=== PATIENT | female | born 1990 | race Caucasian/White ===

== ENCOUNTER 2019-03-09 23:50 | Inpatient (IN) | payer OTHER ==
[~2019-03-09] VITALS: Ht 167.6 cm; Wt 92.4 kg
[2019-03-10] MEDS ORDERED: VANCOMYCIN IV PER PHARMACY XX SCH (00:01)
[2019-03-10] MEDS ORDERED: SODIUM CHLORIDE 0.9% 1L BAG IV* STA (01:07)
[2019-03-10] MEDS ORDERED: morphine 4 MG/ML VIAL IV STA (01:07)
[2019-03-10] MEDS ORDERED: CEFTRIAXONE 1 GM/50 ML (PMX) 50 ML IVPB STA (01:07)
[2019-03-10] MEDS ORDERED: ONDANSETRON 4 MG INJ IV STA (01:07)
[2019-03-10] MEDS ORDERED: ACETAMINOPHEN 325 MG TAB PO STA (01:07)
--- NOTE | 2019-03-10 02:25 | ERD ---
ER Documentation Chief Complaint Chief Complaint L LOWER BACK PAIN, CURRENT TX FOR KIDNEY STONES. FEVER X'S 3 DAYS HPI This is a 29-year-old female who presents for evaluation of lower back pain, she has been having a fever for the last 3 days, she has a history of recurrent kidney stones, and she has had stent placement in the past. She is noted to be febrile, after being roomed in the ED to, thus a code sepsis was called. She states that her symptoms feel similar to prior episodes of kidney stones, she denies any cough, no shortness of breath ROS All systems reviewed and are negative except as per history of present illness. Allergies Allergies: Coded Allergies: No Known Allergy (Unverified , 03/10/19) Physical Exam Vitals Vital Signs Date Temp Pulse Resp B/P (MAP) Pulse Ox O2 O2 Flow FiO2 Time Delivery Rate 03/10/19 101.0 02:33 03/09/19 100.6 103 18 143/75 99 23:55 (97) Physical Exam Const: Well-developed, well-nourished nontoxic Head: Atraumatic Eyes: Normal Conjunctiva ENT: Normal External Ears, Nose and Mouth. Neck: Full range of motion. No meningismus. Resp: Clear to auscultation bilaterally Cardio: Regular rate and rhythm, no murmurs Abd: Soft, non tender, non distended. Normal bowel sounds Skin: No petechiae or rashes Back: No midline or flank tenderness Ext: No cyanosis, or edema Neur: Awake and alert Psych: Normal Mood and Affect Result Diagram: 03/10/19 0128 03/10/19 0128 Results 24 hrs Laboratory Tests Test 03/10/19 01:13 03/10/19 01:28 03/10/19 01:30 03/10/19 02:20 Hepatitis B NEGATIVE Surface Antigen Hepatitis B Core NEGATIVE Total Antibody Hepatitis C NEGATIVE Antibody White Blood Count 6.3 10^3/ul Red Blood Count 3.96 10^6/ul Hemoglobin 10.9 g/dl Hematocrit 34.1 % Mean Corpuscular 86.1 fl Volume Mean Corpuscular 27.5 pg Hemoglobin Mean Corpuscular 32.0 g/dl Hemoglobin Concen t Red Cell 13.4 % Distribution Width Platelet Count 174 10^3/UL Mean Platelet 10.8 fl Volume Immature 0.200 % Granulocytes % Neutrophils % 61.6 % Lymphocytes % 27.1 % Monocytes % 9.8 % Eosinophils % 1.0 % Basophils % 0.3 % Nucleated Red 0.0 /100WBC Blood Cells % Immature 0.010 10^3/ul Granulocytes # Neutrophils # 3.9 10^3/ul Lymphocytes # 1.7 10^3/ul Monocytes # 0.6 10^3/ul Eosinophils # 0.1 10^3/ul Basophils # 0.0 10^3/ul Nucleated Red 0.0 10^3/ul Blood Cells # Prothrombin Time 12.7 Sec Prothrombin Time 1.0 Ratio INR International 0.94 Normalized Ratio Activated 29.8 Sec Partial Thrombopl ast Time Sodium Level 140 mmol/L Potassium Level 4.2 mmol/L Chloride Level 108 mmol/L Carbon Dioxide 24 mmol/L Level Anion Gap 8 Blood Urea 15 mg/dl Nitrogen Creatinine 0.92 mg/dl Est Glomerular > 60 mL/min Filtrat Rate mL/min Glucose Level 104 mg/dl POC Venous 1.1 mmol/L Lactate Calcium Level 8.6 mg/dl Total Bilirubin 0.3 mg/dl Direct Bilirubin 0.00 mg/dl Indirect 0.3 mg/dl Bilirubin Aspartate Amino 74 IU/L Transf (AST/SGOT) Alanine 96 IU/L Aminotransferase (ALT/SGPT) Alkaline 105 IU/L Phosphatase Troponin I < 0.012 ng/ml Total Protein 7.4 g/dl Albumin 3.9 g/dl Globulin 3.50 g/dl Albumin/Globulin 1.11 Ratio Serum HCG, NEGATIVE Qualitative Lactic Acid Level 0.9 mmol/L Urine Color YELLOW Urine Clarity SLIGHTLY CLOUDY Urine pH 6.0 Urine Specific 1.025 [place] Urine Ketones NEGATIVE mg/dL Urine Nitrite NEGATIVE mg/dL Urine Bilirubin NEGATIVE mg/dL Urine NEGATIVE mg/dL Urobilinogen Urine Leukocyte 2+ Arlyn/ul Esterase Urine Microscopic 5 /HPF RBC Urine Microscopic 37 /HPF WBC Urine Squamous MODERATE /HPF Epithelial Cells Urine Mucus FEW /HPF Urine Hemoglobin NEGATIVE mg/dL Urine Glucose NEGATIVE mg/dL Urine Total NEGATIVE mg/dl Protein Test 03/10/19 02:34 POC Beta HCG, NEGATIVE Qualitative Current Medications Medications Dose Sig/Angelo Start Time Status Last (Trade) Ordered Route PRN Stop Time Admin Dose Reason Admin Sodium 2,710 ml BOLUS OVER 2 03/10/19 DC 03/10/19 Chloride HOURS STAT 01:07 02:34 (NS) IV* 03/10/19 01:10 650 mg ONCE STAT 03/10/19 DC 03/10/19 Acetaminophen PO 01:07 02:33 (Tylenol 03/10/19 01:10 Tab) Morphine 4 mg ONCE STAT 03/10/19 DC 03/10/19 Sulfate IV 01:07 02:34 (morphine) 03/10/19 01:10 Ondansetron 4 mg ONCE STAT 03/10/19 DC 03/10/19 HCl (Zofran IV 01:07 02:33 Inj) 03/10/19 01:10 Ceftriaxone 50 ml @ ONCE STAT 03/10/19 DC 03/10/19 Sodium 100 mls/hr IVPB 01:07 02:33 03/10/19 01:36 EKG: Rate/Rhythm: Normal Sinus Rhythm QRS, ST, T-waves: No changes consistent w/ acute ischemia Impression: No evidence of ischemia or arrhythmia Procedures/MDM 29-year-old female presents for relation of flank pain. She was tachycardic with a noted fever, thus a code sepsis was called, persistent pyelonephritis, her CT abdomen pelvis did not show any evidence of any renal stones, she had pyuria, consistent with likely pyelonephritis. She had no evidence of severe sepsis or septic shock. She was given a 30 cc/kg bolus of IV fluids, blood cultures and lactate were drawn prior to antibiotics, she was given ceftriaxone. Accepting Care Team: Current data and ongoing care discussed. Primary: Amde Consulting: None Outstanding Data: none Departure Diagnosis: Primary Impression: Flank pain Additional Impressions: Sepsis Sepsis type: sepsis due to unspecified organism Qualified Codes: A41.9 - Sepsis, unspecified organism Pyelonephritis Condition: SOLO Melendez MD March 10, 2019 02:25
[2019-03-10] MEDS: SOD CHLORIDE 0.9% 1,000 ML IV SCH ×3 (03:51→20:25)
[2019-03-10] MEDS ORDERED: NACL 0.9% 3 ML SYG IV SCH (04:00)
[2019-03-10] MEDS ORDERED: ONDANSETRON 4 MG INJ IV PRN (04:00)
[2019-03-10 04:29] VITALS: BP 117/68; PULSE 76; RESP 18
[2019-03-10 04:33] VITALS: Ht 167.6 cm; Wt 92.4 kg
--- NOTE | 2019-03-10 06:57 | HP ---
Date/Time of Note Date/Time of Note DATE: 03/10/19 TIME: 06:55 Assessment/Plan VTE Prophylaxis SCD applied (from Nsg): Yes Pharmacological prophylaxis: heparin Lines/Catheters IV Catheter Type (from Nrsg): Peripheral IV Urinary Cath still in place: No Assessment/Plan Assessment/Plan 29-year-old female with left ureterolithiasis status post stent presented with left flank pain and found to be septic secondary to UTI with probable left-sided pyelonephritis PLAN -IV antibiotic -IV fluid -Follow-up culture results -Pain management -Urology consult as needed Result Diagram: 03/10/19 0128 03/10/19 0128 Results 24hrs Laboratory Tests Test 03/10/19 01:28 03/10/19 01:30 03/10/19 02:20 03/10/19 02:34 White Blood Count 6.3 Red Blood Count 3.96 L Hemoglobin 10.9 L Hematocrit 34.1 L Mean Corpuscular 86.1 Volume Mean Corpuscular 27.5 L Hemoglobin Mean Corpuscular 32.0 Hemoglobin Concen t Red Cell 13.4 Distribution Width Platelet Count 174 Mean Platelet 10.8 H Volume Immature 0.200 Granulocytes % Neutrophils % 61.6 Lymphocytes % 27.1 Monocytes % 9.8 Eosinophils % 1.0 Basophils % 0.3 Nucleated Red 0.0 Blood Cells % Immature 0.010 Granulocytes # Neutrophils # 3.9 Lymphocytes # 1.7 Monocytes # 0.6 Eosinophils # 0.1 Basophils # 0.0 Nucleated Red 0.0 Blood Cells # Prothrombin Time 12.7 Prothrombin Time 1.0 Ratio INR International 0.94 Normalized Ratio Activated 29.8 Partial Thrombopl ast Time Sodium Level 140 Potassium Level 4.2 Chloride Level 108 Carbon Dioxide 24 Level Anion Gap 8 Blood Urea 15 Nitrogen Creatinine 0.92 Est Glomerular > 60 Filtrat Rate mL/min Glucose Level 104 POC Venous 1.1 Lactate Calcium Level 8.6 Total Bilirubin 0.3 Direct Bilirubin 0.00 Indirect 0.3 Bilirubin Aspartate Amino 74 H Transf (AST/SGOT) Alanine 96 H Aminotransferase (ALT/SGPT) Alkaline 105 Phosphatase Troponin I < 0.012 Total Protein 7.4 Albumin 3.9 Globulin 3.50 H Albumin/Globulin 1.11 Ratio Serum HCG, NEGATIVE Qualitative Lactic Acid Level 0.9 Urine Color YELLOW Urine Clarity SLIGHTLY CLOUDY A Urine pH 6.0 Urine Specific 1.025 [place] Urine Ketones NEGATIVE Urine Nitrite NEGATIVE Urine Bilirubin NEGATIVE Urine NEGATIVE Urobilinogen Urine Leukocyte 2+ H Esterase Urine Microscopic 5 RBC Urine Microscopic 37 H WBC Urine Squamous MODERATE Epithelial Cells Urine Mucus FEW A Urine Hemoglobin NEGATIVE Urine Glucose NEGATIVE Urine Total NEGATIVE Protein POC Beta HCG, NEGATIVE Qualitative Test 03/10/19 04:03 POC Venous 0.8 Lactate HPI/ROS Admit Date/Time Admit Date/Time March 10, 2019 at 02:45 Hx of Present Illness This is a 37-year-old female with history of left ureterolithiasis status post stent placement who presents the ER complaining of left flank pain and fever. When presented to ER, she was febrile. UA consistent with UTI. CT abdomen/pelvis shows the followin. Two 0.4 cm hypodensities are noted within the liver that are too small to accurately characterize. This may not warrant additional follow-up or evaluation depending on patient risk factors. If the patient has risk factors correlation with prior imaging or follow-up hepatic MRI is suggested for further characterization. 2. Mild splenomegaly. PMH/Family/Social Past Medical History Past Surgical Hx: other (see hpi) Family History Significant Family History: no pertinent family hx Social History Alcohol Use: none Smoking Status: Never smoker Drug Use: none Exam Exam Constitutional: other (No acute distress) Head: normocephalic, atraumatic Eyes: EOMI, PERRL Respiratory: other (no wheezing or Rhonchi) Cardiovascular: normal pulse Gastrointestinal: soft, non-tender Extremities: normal pulses Medications Current Medications Sodium Chloride 1,000 ml @ 100 mls/hr Q10H IV Last administered on 03/10/19at 03:51; Admin Dose 100 MLS/HR; Start 03/10/19 at 03:39 IV Flush (NS 3 ml) 3 ml PER PROTOCOL IV ; Start 03/10/19 at 04:00 Ondansetron HCl (Zofran Inj) 4 mg Q6H PRN IV NAUSEA/VOMITING; Start 03/10/19 at 04:00 Acetaminophen (Tylenol Tab) 650 mg Q6H PRN PO .PAIN 1-3 OR TEMP; Start 03/10/19 at 04:00 Coded Allergies: No Known Allergy (Unverified , 03/10/19) Social History Smoking Status: Never smoker Exam/Review of Systems Vital Signs Vitals Vital Signs Date Temp Pulse Resp B/P (MAP) Pulse Ox O2 O2 Flow FiO2 Time Delivery Rate 03/10/19 98.2 76 18 117/68 98 Room Air 04:29 (84) Intake and Output 03/09/19 03/09/19 03/10/19 1515:00 23:00 07:00 IntakeIntake Total 150 ml BalanceBalance 150 ml KHUSHBU RUIZ MD March 10, 2019 06:57
[2019-03-10 07:28] VITALS: BP 111/70; PULSE 75; RESP 14
[2019-03-10] MEDS: morphine 2 MG INJ IV PRN ×2 (08:54→16:57)
--- NOTE | 2019-03-10 11:49 | PN ---
Date/Time of Note Date/Time of Note DATE: 03/10/19 TIME: 11:49 Objective Vitals Vital Signs Date Temp Pulse Resp B/P (MAP) Pulse Ox O2 O2 Flow FiO2 Time Delivery Rate 03/10/19 98.4 75 14 111/70 100 Room Air 07:28 (84) Intake and Output 03/09/19 03/09/19 03/10/19 1414:59 22:59 06:59 IntakeIntake Total 150 ml BalanceBalance 150 ml Results Result Diagram: 03/10/19 0128 03/10/19 0128 Medications Medications Current Medications Sodium Chloride 1,000 ml @ 100 mls/hr Q10H IV Last administered on 03/10/19at 03:51; Admin Dose 100 MLS/HR; Start 03/10/19 at 03:39 IV Flush (NS 3 ml) 3 ml PER PROTOCOL IV ; Start 03/10/19 at 04:00 Ondansetron HCl (Zofran Inj) 4 mg Q6H PRN IV NAUSEA/VOMITING; Start 03/10/19 at 04:00 Acetaminophen (Tylenol Tab) 650 mg Q6H PRN PO .PAIN 1-3 OR TEMP; Start 03/10/19 at 04:00 Acetaminophen/ Hydrocodone Bitart ([place] (5/325)) 1 tab Q4H PRN PO MODERATE PAIN LEVEL 4-6; Start 03/10/19 at 08:30 Morphine Sulfate (morphine) 2 mg Q4H PRN IV SEVERE PAIN LEVEL 7-10 Last administered on 03/10/19at 08:54; Admin Dose 2 MG; Start 03/10/19 at 08:30 Ceftriaxone Sodium 50 ml @ 100 mls/hr Q24H IVPB ; Start 03/10/19 at 21:00 VTE Prophylaxis Risk score (from Nsg)>0 risk: 1 SCD applied (from Nsg): Yes Lines/Catheters IV Catheter Type: Ramirez in Place: No Assessment/Plan Hospital Course Short progress note as patient was seen earlier today with H&P, patient does have a history of left kidney stone, 8 mm diagnosed approximately 1 month ago by her urologist who does not have privileges here at [facility], will obtain x-ray and ultrasound to ensure no continued stone, continue IV antibiotic for at least pyelonephritis, recommend patient wait for urine culture before discharge. Patient does have some elevated liver enzymes and possible abnormali ty on CT, follow-up with ultrasound of the liver and possible MRI if abnormalities are found. Hepatitis negative SOLO BRAVO March 10, 2019 11:49
[2019-03-10 12:05] VITALS: PULSE 84
[2019-03-10] MEDS: ACETAMINOPHEN 325 MG TAB PO PRN ×2 (12:12→19:35)
[2019-03-10] MEDS: HYDROCODONE/APAP (5/325) TAB PO PRN ×2 (12:12→18:22)
[2019-03-10 13:00] VITALS: PULSE 84
[2019-03-10 15:04] VITALS: BP 121/68; PULSE 79; RESP 16
[2019-03-10 18:15] VITALS: PULSE 82
[2019-03-10] MEDS: CEFTRIAXONE 1 GM/50 ML (PMX) 50 ML IVPB SCH (20:23)
[2019-03-11 00:41] VITALS: BP 106/70; PULSE 88; RESP 19
[2019-03-11] MEDS ORDERED: VANCOMYCIN HCL 2 GM in SOD CHLORIDE 0.9% 500 ML IVPB SCH (02:00)
[2019-03-11 02:20] VITALS: BP 108/71; PULSE 85; RESP 16
[2019-03-11] MEDS: morphine 2 MG INJ IV PRN (02:21)
[2019-03-11] MEDS: ACETAMINOPHEN 325 MG TAB PO PRN ×2 (02:23→20:22)
[2019-03-11] MEDS: SOD CHLORIDE 0.9% 1,000 ML IV SCH (05:51)
[2019-03-11 07:31] VITALS: BP 115/62; PULSE 79; RESP 18
[2019-03-11] MEDS: HYDROCODONE/APAP (5/325) TAB PO PRN (10:07)
[2019-03-11] MEDS ORDERED: ALBUTEROL 0.083% (NEB) 2.5 MG/3 ML AMP HHN PRN (12:00)
[2019-03-11] MEDS ORDERED: DOCUSATE SODIUM 100 MG CAP PO PRN (12:00)
[2019-03-11] MEDS ORDERED: HYDROmorphONE 0.5 MG/0.5 ML SYG IV PRN (12:30)
--- NOTE | 2019-03-11 13:13 | CONS ---
DATE OF ADMISSION: 03/10/2019 DATE OF CONSULTATION: 03/11/2019 TYPE OF CONSULTATION: Infectious disease. REASON FOR CONSULTATION: Antibiotic management. HISTORY OF PRESENT ILLNESS: Ale Rodgers is a 29-year-old female who came in with left lower back pain with history of kidney stones and fever for the last 3 days. She comes in for evaluation of low back pain. She has had fever for 3 days, history of recurrent kidney stones and has had a stephenie nt placement in the past. She is febrile to 101. Her symptoms feel similar to that when she had kid susanne stones in the past. PAST MEDICAL HISTORY: Otherwise noncontributory. SOCIAL HISTORY: She does not smoke, drink or abuse drugs. ALLERGIES: None to penicillin, sulfa or foods. MEDICATIONS: Per chart. REVIEW OF SYSTEMS: Noncontributory. PHYSICAL EXAMINATION: GENERAL: She is a well-developed, well-nourished female, awake, responsive, in no acute distress. VITAL SIGNS: Stable. T-max 101. SKIN: Without generalized rash. HEENT: Within normal limits. NECK: Supple. LYMPH NODES: None palpable. CHEST: Decreased breath sounds at the bases. HEART: Without murmur or gallop. ABDOMEN: Soft, nontender, without organosplenomegaly or masses. EXTREMITIES: Without cyanosis, clubbing, or edema. RECTAL AND GENITAL: Deferred. NEUROLOGIC: No focal neurological abnormalities. LABORATORY DATA: On the , white count was 6.3, H and H of 10.9 and 34.1, platelet count 174,000. BUN and creatinine 15/0.92. She had 62% neutrophils. Her blood cultures are positive for gram-pos itive cocci. Urinalysis showed 2+ leukocyte esterase, 37 white cells per high powered field. ANCILLARY LABORATORY DATA: CT scan of the abdomen and pelvis showed two 0.4 cm hypodensities within the liver. No other stones, mild splenomegaly. IMPRESSION AND PLAN: The patient was started on vancomycin and azithromycin, and she is also on ceft riaxone. She is being treated for right upper lobe pneumonia with consolidation, in addition to the fact that she probably has urinary tract infection. She has gram-positive cocci in her blood and so she is on vancomycin as well as cefotaxime or ceftriaxone. I will dictate my findings to the hospita lists. Dictated By: MARIELA MEDEIROS MD, JD/KEEGAN RODRIGUEZ: 03/11/2019 12:15:47 Conf#: [id number] [facility]#: [id number] CC: KHUSHBU RUIZ MD;*EndCC*
[2019-03-11] MEDS: VANCOMYCIN 1 GM 250 ML IVPB SCH ×2 (13:22→20:15)
[2019-03-11] MEDS: POLYETHYLENE GLYCOL 17 GM PACKET PO SCH (13:22)
[2019-03-11] MEDS: KETOROLAC 15 MG INJ IV PRN (13:23)
[2019-03-11 14:05] VITALS: BP 120/68; PULSE 80; RESP 18
[2019-03-11] MEDS: ALBUTEROL 0.083% (NEB) 2.5 MG/3 ML AMP HHN SCH ×2 (14:45→20:39)
--- NOTE | 2019-03-11 15:03 | PN ---
Date/Time of Note Date/Time of Note DATE: 03/11/19 TIME: 14:55 Assessment/Plan VTE Prophylaxis Risk score (from [facility])>0 risk: 1 SCD applied (from [facility]): Yes Pharmacological prophylaxis: NA/contraindicated Pharm contraindication: low risk/ambulating Lines/Catheters IV Catheter Type (from [facility]): Peripheral IV Urinary Cath still in place: No Assessment/Plan Assessment/Plan 1. Sepsis secondary to PNA, UTI, and bacteremia - Still spiking fevers and will continue supportive care - ID consultation placed for antibiotics recommendations - blood culture results noted - WBC normal 2. Right upper lobe PNA - will continue on current antibiotics - Nebs q6H and PRN - O2 as needed 3. UTI - Urine culture results pending - denies any dysuria 4. Bacteremia - blood cx show gram + cocci - ECHO ordered to rule out vegetation - will repeat cx tmrw 5. h/o nephrolithiasis - imaging studies negative for nephrolithiasis and renal abnormalities 6. Anemia - will check iron studies 7. Disposition - Will continue current antibiotic treatment and repeat blood cultures tomorrow. Once patient remains afebrile for at least 24 hours and cx sensitivities return, will d/c Result Diagram: 03/11/19 0501 03/11/19 0501 Results 24hrs Laboratory Tests Test 03/11/19 05:01 White Blood Count 6.7 Red Blood Count 3.76 L Hemoglobin 10.3 L Hematocrit 31.6 L Mean Corpuscular Volume 84.0 Mean Corpuscular Hemoglobin 27.4 L Mean Corpuscular Hemoglobin Concent 32.6 Red Cell Distribution Width 13.6 Platelet Count 176 Mean Platelet Volume 11.1 H Immature Granulocytes % 0.300 Neutrophils % 69.5 Lymphocytes % 19.5 Monocytes % 9.4 Eosinophils % 1.2 Basophils % 0.1 Nucleated Red Blood Cells % 0.0 Immature Granulocytes # 0.020 Neutrophils # 4.6 Lymphocytes # 1.3 Monocytes # 0.6 Eosinophils # 0.1 Basophils # 0.0 Nucleated Red Blood Cells # 0.0 Sodium Level 140 Potassium Level 3.8 Chloride Level 107 Carbon Dioxide Level 26 Anion Gap 7 Blood Urea Nitrogen 9 Creatinine 0.75 Est Glomerular Filtrat Rate mL/min > 60 Glucose Level 95 Calcium Level 8.4 Phosphorus Level 3.5 Magnesium Level 1.7 Total Bilirubin 0.2 Direct Bilirubin 0.00 Indirect Bilirubin 0.2 Aspartate Amino Transf (AST/SGOT) 58 H Alanine Aminotransferase (ALT/SGPT) 84 H Alkaline Phosphatase 100 Total Protein 6.1 # Albumin 3.2 L Globulin 2.90 Albumin/Globulin Ratio 1.10 Subjective 24 Hr Interval Summary Free Text/Dictation Patient still with diaphoresis and complaining of headache. Denies any dysuria but is complaining of cough with chest discomfort. Exam/Review of Systems Exam Vitals Vital Signs Date Temp Pulse Resp B/P (MAP) Pulse Ox O2 O2 Flow FiO2 Time Delivery Rate 03/11/19 77 18 96 21 14:45 03/11/19 98.0 120/68 14:05 (85) 03/11/19 Room Air 02:20 Intake and Output 03/10/19 03/10/19 03/11/19 1515:00 23:00 07:00 IntakeIntake Total 850 ml 1530 ml 1500 ml BalanceBalance 850 ml 1530 ml 1500 ml Exam General: Patient is laying in bed and answers questions appropriately. no acute distress Mentation: Patient is alert and oriented 4, Eyes: EOMI, pupils reactive to light Neck: Supple, nontender, midline Respiratory: Clear to auscultation bilaterally. diminished, no wheezing or rhonchi Cardiovascular: regular rate and rhythm, no obvious murmurs Gastrointestinal: soft, nontender to palpation, nondistended, bowel sounds heard. Ext: moving all extremities. no edema Skin: No new skin lesions Results Results 24hrs Laboratory Tests Test 03/11/19 05:01 White Blood Count 6.7 Red Blood Count 3.76 L Hemoglobin 10.3 L Hematocrit 31.6 L Mean Corpuscular Volume 84.0 Mean Corpuscular Hemoglobin 27.4 L Mean Corpuscular Hemoglobin Concent 32.6 Red Cell Distribution Width 13.6 Platelet Count 176 Mean Platelet Volume 11.1 H Immature Granulocytes % 0.300 Neutrophils % 69.5 Lymphocytes % 19.5 Monocytes % 9.4 Eosinophils % 1.2 Basophils % 0.1 Nucleated Red Blood Cells % 0.0 Immature Granulocytes # 0.020 Neutrophils # 4.6 Lymphocytes # 1.3 Monocytes # 0.6 Eosinophils # 0.1 Basophils # 0.0 Nucleated Red Blood Cells # 0.0 Sodium Level 140 Potassium Level 3.8 Chloride Level 107 Carbon Dioxide Level 26 Anion Gap 7 Blood Urea Nitrogen 9 Creatinine 0.75 Est Glomerular Filtrat Rate mL/min > 60 Glucose Level 95 Calcium Level 8.4 Phosphorus Level 3.5 Magnesium Level 1.7 Total Bilirubin 0.2 Direct Bilirubin 0.00 Indirect Bilirubin 0.2 Aspartate Amino Transf (AST/SGOT) 58 H Alanine Aminotransferase (ALT/SGPT) 84 H Alkaline Phosphatase 100 Total Protein 6.1 # Albumin 3.2 L Globulin 2.90 Albumin/Globulin Ratio 1.10 Medications Medication Current Medications IV Flush (NS 3 ml) 3 ml PER PROTOCOL IV ; Start 03/10/19 at 04:00 Ondansetron HCl (Zofran Inj) 4 mg Q6H PRN IV NAUSEA/VOMITING; Start 03/10/19 at 04:00 Acetaminophen (Tylenol Tab) 650 mg Q6H PRN PO .PAIN 1-3 OR TEMP Last administered on 03/11/19at 02:23; Admin Dose 650 MG; Start 03/10/19 at 04:00 Acetaminophen/ Hydrocodone Bitart ([place] (5/325)) 1 tab Q4H PRN PO MODERATE PAIN LEVEL 4-6 Last administered on 03/11/19at 10:07; Admin Dose 1 TAB; Start 03/10/19 at 08:30 Ceftriaxone Sodium 50 ml @ 100 mls/hr Q24H IVPB Last administered on 03/10/19at 20:23; Admin Dose 100 MLS/HR; Start 03/10/19 at 21:00 Vancomycin HCl (Vanco Iv Per Pharmacy) VANCOMYCIN PER PHARMACY PER PROTOCOL XX ; Start 03/10/19 at 00:01 Vancomycin HCl 250 ml @ 125 mls/hr Q8H IVPB Last administered on 03/11/19at 13:22; Admin Dose 125 MLS/HR; Start 03/11/19 at 12:00 Miscellaneous Information (*Rx Drug Level Order Reminder*) VANCO TROUGH ON 02/27... 0300 ONCE XX ; Start 03/12/19 at 03:00; Stop 03/12/19 at 03:01 Albuterol (Proventil 0.083% (Neb)) 2.5 mg Q2H RESP THERAPY PRN HHN SHORTNESS OF BREATH; Start 03/11/19 at 12:00 Albuterol (Proventil 0.083% (Neb)) 2.5 mg Q6HWA RESP THERAPY HHN Last administered on 03/11/19at 14:45; Admin Dose 2.5 MG; Start 03/11/19 at 14:00 Azithromycin 250 ml @ 250 mls/hr Q24H IVPB ; Start 03/11/19 at 12:00 Ketorolac Tromethamine (Toradol) 15 mg Q6H PRN IV headache, pain 1-3 Last administered on 03/11/19at 13:23; Admin Dose 15 MG; Start 03/11/19 at 12:00; Stop 03/14/19 at 11:59 Polyethylene Glycol (Miralax) 17 gm DAILY PO Last administered on 03/11/19at 13:22; Admin Dose 17 GM; Start 03/11/19 at 12:00 Docusate Sodium (Colace) 100 mg BID PRN PO CONSTIPATION; Start 03/11/19 at 12:00 Hydromorphone HCl (Dilaudid) 0.5 mg Q4H PRN IV SEVERE PAIN LEVEL 7-10; Start 03/11/19 at 12:30 NAEEM HORNE MD March 11, 2019 15:03
[2019-03-11] MEDS: AZITHROMYCIN 500MG/NS (PMX) 250 ML IVPB SCH (16:15)
--- NOTE | 2019-03-11 16:57 | RADRPT ---
Echocardiogram Report Patient Name: LAUREN SUNGPatient ID: [id number] : 1990 (29y 1m)Study Date: 03/11/2019 2:00:58 PM Gender: FAccession #: [id number] Tech: [facility] Location: [address] Ref.Physician: NAEEM HORNE Height(Cm): BSA: Weight(Kg): Quality: AdequateAccount #: Procedures: Echocardiographic Report: Transthoracic echocardiogram with complete 2D, M-Mode, and doppler examination. Indications: Bacteremia, r/o vegetation. Measurements: 2D/M Mode Doppler Measurement Value Normal Range Measurement Value Normal Range LVIDd 2D 5.0 [ 3.8 - 5.2 ] cm AV Peak Campbell 1.6 [ 100.0 - 170.0 ] cm/sec LVIDs 2D 3.1 [ 2.2 - 3.5 ] cm AV Peak PG 10.0 [ 2.0 - 9.0 ] mmHg LVPWd 2D 1.0 [ 0.6 - 0.9 ] cm LVOT Peak [place] 1.0 [ 70.0 - 110.0 ] cm/sec IVSd 2D 1.0 [ 0.6 - 0.9 ] cm LVOT Peak PG 4.0 [ 2.0 - 6.0 ] mmHg AoR Diam 2D 3.0 [ 2.3 - 3.1 ] cm MV E Peak Campbell 1.0 [ 60.0 - 130.0 ] cm/sec EDV 2D 117.0 [ 46.0 - 106.0 ] ml MV A Peak [place] 1.0 [ 100.0 - 120.0 ] cm/sec ESV 2D 38.2 [ 14.0 - 42.0 ] ml MV E/A 1.1 [ 0.8 - 1.5 ] ratio EF 2D 67.4 [ 54.0 - 74.0 ] percent MV Decel Time 243 [ 104 - 258 ] msec LA Dimen 2D 3.5 [ 2.7 - 3.8 ] cm Lat E` Campbell 0.2 [ 10.0 - 15.0 ] cm/sec Lateral E/E` 6.0 [ 1.0 - 2.0 ] ratio MV E/A 1.1 [ 0.8 - 1.5 ] ratio TR Peak Campbell 3.1 [ 100.0 - 280.0 ] cm/sec TR Peak PG 38.0 mmHg RVSP 48.0 [ 10.0 - 36.0 ] mmHg Findings: Left Ventricle: Normal left ventricular systolic function. Normal left ventricular cavity size. Normal left ventricular wall thickness. Ejection fraction is visually estimated at 55 %. Tissue Doppler/Mitral Doppler indices are within normal limits. Right Ventricle: Normal right ventricular size. Normal right ventricular systolic function. Left Atrium: The left atrium is normal in size. Right Atrium: The right atrium is normal in size. Mitral Valve: Mild mitral leaflet calcification. Mild mitral annular calcification. Trace mitral regurgitation. Aortic Valve: No hemodynamically significant aortic stenosis by doppler. Aortic cusps appear mildly calcified. Trileaflet aortic valve. Tricuspid Valve: Normal appearance of the tricuspid valve. Estimated peak PA systolic pressure 48 mmHg. There is mild tricuspid regurgitation. Pericardium: Normal pericardium with no significant pericardial effusion. Aorta: Normal aortic root. IVC: Normal size and normal respiratory collapse consistent with normal right atrial pressure. Conclusions: Normal left ventricular systolic function. Normal left ventricular cavity size. Normal left ventricular wall thickness. Ejection fraction is visually estimated at 55 %. Tissue Doppler/Mitral Doppler indices are within normal limits. Mild mitral leaflet calcification. Mild mitral annular calcification. Trace mitral regurgitation. No hemodynamically significant aortic stenosis by doppler. Aortic cusps appear mildly calcified. Trileaflet aortic valve. Normal appearance of the tricuspid valve. Estimated peak PA systolic pressure 48 mmHg. There is mild tricuspid regurgitation. Electronically Signed By: Drew Walsh 2019-03-11 16:57:31 PDT
[2019-03-11 20:06] VITALS: BP 120/77; PULSE 99; RESP 18
[2019-03-11] MEDS: CEFTRIAXONE 1 GM/50 ML (PMX) 50 ML IVPB SCH (22:41)
[2019-03-12 01:58] VITALS: BP 115/70; PULSE 68; RESP 18
[2019-03-12] MEDS: VANCOMYCIN 1 GM 250 ML IVPB SCH (04:07)
[2019-03-12 08:00] VITALS: BP 126/78; PULSE 82; RESP 18
[2019-03-12] MEDS: ALBUTEROL 0.083% (NEB) 2.5 MG/3 ML AMP HHN SCH ×3 (08:44→21:41)
[2019-03-12] MEDS: POLYETHYLENE GLYCOL 17 GM PACKET PO SCH (09:00)
--- NOTE | 2019-03-12 10:57 | PN ---
Date/Time of Note Date/Time of Note DATE: 03/12/19 TIME: 10:57 Assessment/Plan VTE Prophylaxis Risk score (from Ns)>0 risk: 1 SCD applied (from Ns): Yes Pharmacological prophylaxis: NA/contraindicated Pharm contraindication: low risk/ambulating Lines/Catheters [facility] Peripheral IV Urinary Cath still in place: No Assessment/Plan Assessment/Plan 1. Sepsis secondary to PNA, UTI, and bacteremia- improving - still with low grade fever yesterday and will continue current care - ID consultation appreciated for antibiotic recommendations - blood culture results noted and will repeat today 2. Right upper lobe PNA - will continue on current antibiotics - Nebs q6H and PRN 3. UTI - Urine culture results noted with Pseudomonas - denies any dysuria 4. Bacteremia - blood cx show gram + cocci - ECHO resulted noted - will repeat blood cultures today 5. h/o nephrolithiasis - imaging studies negative for nephrolithiasis and renal abnormalities 6. Anemia - will need iron supplementation at discharge 7. Disposition - Once afebrile for 24 hours and repeat blood cultures negative, will transition to PO antibiotics and d/c home Result Diagram: 03/11/19 0501 03/12/19 0310 Results 24hrs Laboratory Tests Test 03/12/19 03:09 03/12/19 03:10 Vancomycin Level Trough 12.1 Blood Urea Nitrogen 7 Creatinine 0.70 Iron Level 20 L Total Iron Binding Capacity 261 Percent Iron Saturation 8 L Subjective 24 Hr Interval Summary Free Text/Dictation Patient states shes feeling better and flank pain improving. Neb treatments helping with shortness of breath but still with cough. Low grade fever appreciated last night. Exam/Review of Systems Exam Vitals Vital Signs Date Temp Pulse Resp B/P (MAP) Pulse Ox O2 O2 Flow FiO2 Time Delivery Rate 03/12/19 73 18 100 Nasal 3.0 08:44 Cannula 03/12/19 98.8 126/78 08:00 (94) 03/12/19 32 00:51 Intake and Output 03/11/19 03/11/19 03/12/19 1414:59 22:59 06:59 IntakeIntake Total 1750 ml 300 ml BalanceBalance 1750 ml 300 ml Exam General: Patient is laying in bed and answers questions appropriately. no acute distress Neck: Supple, nontender, midline Respiratory: Clear to auscultation bilaterally. diminished, no wheezing or rhonchi Cardiovascular: regular rate and rhythm, no obvious murmurs Gastrointestinal: soft, nontender to palpation, nondistended, bowel sounds heard. Ext: moving all extremities. no edema Skin: No new skin lesions Results Results 24hrs Laboratory Tests Test 03/12/19 03:09 03/12/19 03:10 Vancomycin Level Trough 12.1 Blood Urea Nitrogen 7 Creatinine 0.70 Iron Level 20 L Total Iron Binding Capacity 261 Percent Iron Saturation 8 L Medications Medication Current Medications IV Flush (NS 3 ml) 3 ml PER PROTOCOL IV ; Start 03/10/19 at 04:00 Ondansetron HCl (Zofran Inj) 4 mg Q6H PRN IV NAUSEA/VOMITING; Start 03/10/19 at 04:00 Acetaminophen (Tylenol Tab) 650 mg Q6H PRN PO .PAIN 1-3 OR TEMP Last administered on 03/11/19at 20:22; Admin Dose 650 MG; Start 03/10/19 at 04:00 Acetaminophen/ Hydrocodone Bitart ([place] (5/325)) 1 tab Q4H PRN PO MODERATE PAIN LEVEL 4-6 Last administered on 03/11/19 10:07; Admin Dose 1 TAB; Start 03/10/19 at 08:30 Ceftriaxone Sodium 50 ml @ 100 mls/hr Q24H IVPB Last administered on 03/11/19at 22:41; Admin Dose 100 MLS/HR; Start 03/10/19 at 21:00 Vancomycin HCl (Vanco Iv Per Pharmacy) VANCOMYCIN PER PHARMACY PER PROTOCOL XX ; Start 03/10/19 at 00:01 Vancomycin HCl 250 ml @ 125 mls/hr Q8H IVPB Last administered on 03/12/19 04:07; Admin Dose 125 MLS/HR; Start 03/11/19 at 12:00 Albuterol (Proventil 0.083% (Neb)) 2.5 mg Q2H RESP THERAPY PRN HHN SHORTNESS OF BREATH Last administered on 03/11/19 18:37; Admin Dose 2.5 MG; Start 03/11/19 at 12:00 Albuterol (Proventil 0.083% (Neb)) 2.5 mg Q6HWA RESP THERAPY HHN Last administered on 03/12/19 08:44; Admin Dose 2.5 MG; Start 03/11/19 at 14:00 Azithromycin 250 ml @ 250 mls/hr Q24H IVPB Last administered on 03/11/19at 16:15; Admin Dose 250 MLS/HR; Start 03/11/19 at 12:00 Ketorolac Tromethamine (Toradol) 15 mg Q6H PRN IV headache, pain 1-3 Last administered on 03/11/19at 13:23; Admin Dose 15 MG; Start 03/11/19 at 12:00; Stop 03/14/19 at 11:59 Polyethylene Glycol (Miralax) 17 gm DAILY PO Last administered on 03/11/19at 13:22; Admin Dose 17 GM; Start 03/11/19 at 12:00 Docusate Sodium (Colace) 100 mg BID PRN PO CONSTIPATION; Start 03/11/19 at 12:00 Hydromorphone HCl (Dilaudid) 0.5 mg Q4H PRN IV SEVERE PAIN LEVEL 7-10 Last administered on 03/11/19at 20:15; Admin Dose 0.5 MG; Start 03/11/19 at 12:30 NAEEM HORNE MD March 12, 2019 10:57
[2019-03-12] MEDS: AZITHROMYCIN 500MG/NS (PMX) 250 ML IVPB SCH (12:28)
[2019-03-12] MEDS: KETOROLAC 15 MG INJ IV PRN ×2 (12:58→21:28)
[2019-03-12 14:00] VITALS: BP 128/78; PULSE 101; RESP 18
--- NOTE | 2019-03-12 15:12 | CONS ---
Assessment/Plan Assessment/Plan Hospital Course (Demo Recall) No acute changes overnight patient is sleeping looks comfortable per report and she feels actually better today still with low-grade fevers. T-max 100.8 T- current 99 WBC 6.7 yesterday no shift no bands BUN 7 creatinine 0.7 Microbiology: Urine culture grew pseudomonas aeruginosa susceptible to sidra quinolones, blood culture grew coag negative staph species resistant only to erythromycin Antimicrobials: Rocephin, Zithromax, status post vancomycin Assessment: 1. Acute pyelonephritis 2. Coag negative staph bacteremia likely contaminant 3. Community-acquired pneumonia Plan: Patient remains stable, pending repeat blood cultures, continue on current antibiotics repeat chest x-ray in a.m. and anticipate discharge on oral Levaquin to complete 2 weeks Consultation Date/Type/Reason Admit Date/Time March 10, 2019 at 02:45 Initial Consult Date Type of Consult id Date/Time of Note DATE: 03/12/19 TIME: 15:12 Exam/Review of Systems Exam Vitals Vital Signs Date Temp Pulse Resp B/P (MAP) Pulse Ox O2 O2 Flow FiO2 Time Delivery Rate 03/12/19 99.0 101 18 128/78 97 14:00 (95) 03/12/19 2.0 12:55 03/12/19 Nasal 12:55 Cannula 03/12/19 32 00:51 Intake and Output 03/11/19 03/11/19 03/12/19 1515:00 23:00 07:00 IntakeIntake Total 1750 ml 300 ml BalanceBalance 1750 ml 300 ml Results Result Diagram: 03/11/19 0501 03/12/19 0310 Results 24hrs Laboratory Tests Test 03/12/19 03:09 03/12/19 03:10 Vancomycin Level Trough 12.1 Blood Urea Nitrogen 7 Creatinine 0.70 Iron Level 20 L Total Iron Binding Capacity 261 Percent Iron Saturation 8 L Medications Medication Current Medications IV Flush (NS 3 ml) 3 ml PER PROTOCOL IV ; Start 03/10/19 at 04:00 Ondansetron HCl (Zofran Inj) 4 mg Q6H PRN IV NAUSEA/VOMITING; Start 03/10/19 at 04:00 Acetaminophen (Tylenol Tab) 650 mg Q6H PRN PO .PAIN 1-3 OR TEMP Last administered on 03/11/19at 20:22; Admin Dose 650 MG; Start 03/10/19 at 04:00 Acetaminophen/ Hydrocodone Bitart ([place] (5/325)) 1 tab Q4H PRN PO MODERATE PAIN LEVEL 4-6 Last administered on 03/11/19 10:07; Admin Dose 1 TAB; Start 03/10/19 at 08:30 Ceftriaxone Sodium 50 ml @ 100 mls/hr Q24H IVPB Last administered on 03/11/19 22:41; Admin Dose 100 MLS/HR; Start 03/10/19 at 21:00 Albuterol (Proventil 0.083% (Neb)) 2.5 mg Q2H RESP THERAPY PRN HHN SHORTNESS OF BREATH Last administered on 03/11/19 18:37; Admin Dose 2.5 MG; Start 03/11/19 at 12:00 Albuterol (Proventil 0.083% (Neb)) 2.5 mg Q6HWA RESP THERAPY HHN Last administered on 03/12/19 13:00; Admin Dose 2.5 MG; Start 03/11/19 at 14:00 Azithromycin 250 ml @ 250 mls/hr Q24H IVPB Last administered on 03/12/19 12:28; Admin Dose 250 MLS/HR; Start 03/11/19 at 12:00 Ketorolac Tromethamine (Toradol) 15 mg Q6H PRN IV headache, pain 1-3 Last administered on 03/12/19 12:58; Admin Dose 15 MG; Start 03/11/19 at 12:00; Stop 03/14/19 at 11:59 Polyethylene Glycol (Miralax) 17 gm DAILY PO Last administered on 03/11/19 13:22; Admin Dose 17 GM; Start 03/11/19 at 12:00 Docusate Sodium (Colace) 100 mg BID PRN PO CONSTIPATION; Start 03/11/19 at 12:00 Hydromorphone HCl (Dilaudid) 0.5 mg Q4H PRN IV SEVERE PAIN LEVEL 7-10 Last administered on 03/11/19 20:15; Admin Dose 0.5 MG; Start 03/11/19 at 12:30 CELSO GRIJALVA NP March 12, 2019 15:12
[2019-03-12 20:30] VITALS: BP 126/79; PULSE 77; RESP 18
[2019-03-12] MEDS: CEFTRIAXONE 1 GM/50 ML (PMX) 50 ML IVPB SCH (21:26)
[2019-03-13 02:07] VITALS: BP 125/76; PULSE 77; RESP 18
[2019-03-13] MEDS: ALBUTEROL 0.083% (NEB) 2.5 MG/3 ML AMP HHN SCH ×3 (08:07→20:22)
[2019-03-13 08:30] VITALS: BP 126/89; PULSE 68; RESP 18
[2019-03-13] MEDS: POLYETHYLENE GLYCOL 17 GM PACKET PO SCH (09:00)
--- NOTE | 2019-03-13 11:26 | PN ---
Date/Time of Note Date/Time of Note DATE: 03/13/19 TIME: 11:26 Assessment/Plan VTE Prophylaxis Risk score (from Ns)>0 risk: 1 SCD applied (from Ns): Yes Pharmacological prophylaxis: NA/contraindicated Pharm contraindication: low risk/ambulating Lines/Catheters IV C[facility]ter Type (from [facility] Peripheral IV Urinary Cath still in place: No Assessment/Plan Assessment/Plan 1. Sepsis secondary to PNA, UTI, and bacteremia - ID consultation appreciated and placed on Cefepime and Levaquin. Requesting CT scan given CXR findings of worsening RUL consolidation - ID consultation appreciated for antibiotic recommendations - repeat blood cultures pending 2. Right upper lobe PNA - CT chest ordered to further evaluate given worsening consolidation on CXR - ID on board and adjustments made to antibiotics - Nebs q6H and PRN 3. UTI - Urine culture results noted with Pseudomonas - denies any dysuria 4. Bacteremia - blood cx show gram + cocci - ECHO resulted noted - repeat cultures pending 5. h/o nephrolithiasis - imaging studies negative for nephrolithiasis and renal abnormalities 6. Anemia - will need iron supplementation at discharge 7. Disposition - Antibiotic changes made per ID and CT scan chest ordered to further evaluate CXR findings or worsening RUL PNA Result Diagram: 03/11/19 0501 03/12/19 0310 Subjective 24 Hr Interval Summary Free Text/Dictation Patient states shes having difficulty mobilizing expectorant. Denies any fevers or chills. Exam/Review of Systems Exam Vitals Vital Signs Date Temp Pulse Resp B/P (MAP) Pulse Ox O2 O2 Flow FiO2 Time Delivery Rate 03/13/19 97.9 68 18 126/89 97 08:30 (101) 03/13/19 Nasal 2.0 08:07 Cannula 03/12/19 21 21:41 Intake and Output 03/12/19 03/12/19 03/13/19 1515:00 23:00 07:00 IntakeIntake Total 650 ml 290 ml BalanceBalance 650 ml 290 ml Exam General: Patient is laying in bed and answers questions appropriately. no acute distress Neck: Supple, nontender, midline Respiratory: Right upper lobes diminished, no wheezing or rhonchi Cardiovascular: regular rate and rhythm, no obvious murmurs Gastrointestinal: soft, nontender to palpation, nondistended, bowel sounds heard. Ext: moving all extremities. no edema Skin: No new skin lesions Medications Medication Current Medications IV Flush (NS 3 ml) 3 ml PER PROTOCOL IV ; Start 03/10/19 at 04:00 Ondansetron HCl (Zofran Inj) 4 mg Q6H PRN IV NAUSEA/VOMITING; Start 03/10/19 at 04:00 Acetaminophen (Tylenol Tab) 650 mg Q6H PRN PO .PAIN 1-3 OR TEMP Last a dministered on 03/11/19 20:22; Admin Dose 650 MG; Start 03/10/19 at 04:00 Acetaminophen/ Hydrocodone Bitart ([place] (5/325)) 1 tab Q4H PRN PO MODERATE PAIN LEVEL 4-6 Last administered on 03/11/19 10:07; Admin Dose 1 TAB; Start 03/10/19 at 08:30 Ceftriaxone Sodium 50 ml @ 100 mls/hr Q24H IVPB Last administered on 03/12/19 21:26; Admin Dose 100 MLS/HR; Start 03/10/19 at 21:00 Albuterol (Proventil 0.083% (Neb)) 2.5 mg Q2H RESP THERAPY PRN HHN SHORTNESS OF BREATH Last administered on 03/11/19 18:37; Admin Dose 2.5 MG; Start 03/11/19 at 12:00 Albuterol (Proventil 0.083% (Neb)) 2.5 mg Q6HWA RESP THERAPY HHN Last administered on 03/13/19 08:07; Admin Dose 2.5 MG; Start 03/11/19 at 14:00 Azithromycin 250 ml @ 250 mls/hr Q24H IVPB Last administered on 03/12/19 12:28; Admin Dose 250 MLS/HR; Start 03/11/19 at 12:00 Ketorolac Tromethamine (Toradol) 15 mg Q6H PRN IV headache, pain 1-3 Last administered on 03/12/19 21:28; Admin Dose 15 MG; Start 03/11/19 at 12:00; Stop 03/14/19 at 11:59 Polyethylene Glycol (Miralax) 17 gm DAILY PO Last administered on 03/11/19 13:22; Admin Dose 17 GM; Start 03/11/19 at 12:00 Docusate Sodium (Colace) 100 mg BID PRN PO CONSTIPATION; Start 03/11/19 at 12:00 Hydromorphone HCl (Dilaudid) 0.5 mg Q4H PRN IV SEVERE PAIN LEVEL 7-10 Last administered on 03/11/19at 20:15; Admin Dose 0.5 MG; Start 03/11/19 at 12:30 Guaifenesin (Mucinex) 600 mg BID PO ; Start 03/13/19 at 11:00 NAEEM HORNE MD March 13, 2019 11:26
[2019-03-13] MEDS: GUAIFENESIN LA 600 MG TABSR PO SCH ×2 (11:48→20:09)
[2019-03-13] MEDS: AZITHROMYCIN 500MG/NS (PMX) 250 ML IVPB SCH (11:48)
[2019-03-13] MEDS ORDERED: SOD CHLORIDE 0.9% 100 ML ONE (12:49)
[2019-03-13] MEDS ORDERED: IOHEXOL 300MG/ML 150 ML BTL ONE (12:49)
[2019-03-13] MEDS ORDERED: CEFEPIME 1GM/50 ML (PMX) 50 ML IVPB SCH (13:00)
--- NOTE | 2019-03-13 14:34 | CONS ---
Assessment/Plan Assessment/Plan Hospital Course (Demo Recall) Alert still with significant cough and pleuritic chest pain on inspiration. No labs this morning. CT chest revealed right upper lobe pulmonary consolidation and patchy groundglass opacities. Additional smaller consolidation and opacities in the right middle lobe and right lower lobe. Findings concerning for multifocal pneumonia. 1.9 cm left thyroid nodule. 2.0 cm enhancing lesion of the medial left lobe of the liver. Antimicrobials: Levaquin, cefepime Physical examination well-developed middle-aged woman who is alert in no distress neck is supple chest rise symmetrical breath sounds with crackles and diminished on the right heart: S1-S2 abdomen soft bowel sounds present extr emities without cyanosis Assessment: 1. Multifocal right-sided pneumonia 2. Pseudomonas UTI 3. Coag negative staph bacteremia with repeat blood cultures negative Plan: Patient remained stable, on appropriate antibiotics, encourage ambulation and incentive spirometry, repeat chest x-ray in 24 hours Consultation Date/Type/Reason Admit Date/Time March 10, 2019 at 02:45 Initial Consult Date Type of Consult id Date/Time of Note DATE: 03/13/19 TIME: 14:33 Exam/Review of Systems Exam Vitals Vital Signs Date Temp Pulse Resp B/P (MAP) Pulse Ox O2 O2 Flow FiO2 Time Delivery Rate 03/13/19 97.9 68 18 126/89 97 08:30 (101) 03/13/19 Nasal 2.0 08:07 Cannula 03/12/19 21 21:41 Intake and Output 03/12/19 03/12/19 03/13/19 1515:00 23:00 07:00 IntakeIntake Total 650 ml 290 ml BalanceBalance 650 ml 290 ml Results Result Diagram: 03/11/19 0501 03/12/19 0310 Medications Medication Current Medications IV Flush (NS 3 ml) 3 ml PER PROTOCOL IV ; Start 03/10/19 at 04:00 Ondansetron HCl (Zofran Inj) 4 mg Q6H PRN IV NAUSEA/VOMITING; Start 03/10/19 at 04:00 Acetaminophen (Tylenol Tab) 650 mg Q6H PRN PO .PAIN 1-3 OR TEMP Last administered on 03/11/19at 20:22; Admin Dose 650 MG; Start 03/10/19 at 04:00 Acetaminophen/ Hydrocodone Bitart ([place] (5/325)) 1 tab Q4H PRN PO MODERATE PAIN LEVEL 4-6 Last administered on 03/11/19at 10:07; Admin Dose 1 TAB; Start 03/10/19 at 08:30 Albuterol (Proventil 0.083% (Neb)) 2.5 mg Q2H RESP THERAPY PRN HHN SHORTNESS OF BREATH Last administered on 03/11/19at 18:37; Admin Dose 2.5 MG; Start 03/11/19 at 12:00 Albuterol (Proventil 0.083% (Neb)) 2.5 mg Q6HWA RESP THERAPY HHN Last admin istered on 03/13/19 08:07; Admin Dose 2.5 MG; Start 03/11/19 at 14:00 Ketorolac Tromethamine (Toradol) 15 mg Q6H PRN IV headache, pain 1-3 Last administered on 03/12/19at 21:28; Admin Dose 15 MG; Start 03/11/19 at 12:00; Stop 03/14/19 at 11:59 Polyethylene Glycol (Miralax) 17 gm DAILY PO Last administered on 03/11/19at 13:22; Admin Dose 17 GM; Start 03/11/19 at 12:00 Docusate Sodium (Colace) 100 mg BID PRN PO CONSTIPATION; Start 03/11/19 at 12:00 Hydromorphone HCl (Dilaudid) 0.5 mg Q4H PRN IV SEVERE PAIN LEVEL 7-10 Last administered on 03/11/19at 20:15; Admin Dose 0.5 MG; Start 03/11/19 at 12:30 Guaifenesin (Mucinex) 600 mg BID PO Last administered on 03/13/19at 11:48; Admin Dose 600 MG; Start 03/13/19 at 11:00 Cefepime HCl 50 ml @ 100 mls/hr Q12 IVPB ; Start 03/13/19 at 13:00 Levofloxacin (Levaquin) 750 mg DAILY@06 PO ; Start 03/14/19 at 06:00 CELSO GRIJALVA NP March 13, 2019 14:34
[2019-03-13 16:36] VITALS: BP 120/78; PULSE 98; RESP 18
[2019-03-13 19:26] VITALS: BP 128/83; PULSE 73; RESP 18
[2019-03-14] MEDS: KETOROLAC 15 MG INJ IV PRN ×2 (00:07→05:45)
[2019-03-14] MEDS: ACETAMINOPHEN 325 MG TAB PO PRN (00:38)
[2019-03-14 02:31] VITALS: BP 124/80; PULSE 70; RESP 18
[2019-03-14] MEDS: CEFEPIME 1GM/50 ML (PMX) 50 ML IVPB SCH ×2 (03:51→16:15)
[2019-03-14] MEDS ORDERED: LEVOFLOXACIN 750 MG TABLET PO SCH (06:00)
[2019-03-14 08:09] VITALS: BP 122/80; PULSE 76; RESP 18
[2019-03-14] MEDS: POLYETHYLENE GLYCOL 17 GM PACKET PO SCH (09:00)
[2019-03-14] MEDS: ALBUTEROL 0.083% (NEB) 2.5 MG/3 ML AMP HHN SCH ×2 (09:15→15:08)
[2019-03-14] MEDS: GUAIFENESIN LA 600 MG TABSR PO SCH (09:32)
[2019-03-14] MEDS ORDERED: ACET/BUTAL/CAFF TAB PO ONE (12:00)
--- NOTE | 2019-03-14 13:47 | PN ---
Date/Time of Note Date/Time of Note DATE: 03/14/19 TIME: 13:44 Assessment/Plan VTE Prophylaxis Risk score (from [facility] [place])>0 risk: 1 SCD applied (from Ns): Yes Pharmacological prophylaxis: NA/contraindicated Pharm contraindication: low risk/ambulating Lines/Catheters IV [facility] (from [facility] [place] Urinary Cath still in place: No Assessment/Plan Assessment/Plan 1. Sepsis secondary to PNA, UTI, and bacteremia- improving - remains afebrile with nl WBC - ID on board and appreciate consultation. Discussed discharge planning and will continue on Levaquin and Augmentin as outpatient 2. Right lobe PNA - CT scan showing multifocal PNA - continue antibiotics and will give albuterol inhaler script if experiencing SOB as outpatient 3. UTI - Urine culture results noted with Pseudomonas - denies any dysuria 4. Bacteremia - repeat blood cx negative - ECHO resulted noted 5. h/o nephrolithiasis - imaging studies negative for nephrolithiasis and renal abnormalities 6. Anemia - will start PO iron supplements 7. Disposition - Medically stable for discharge after dose of Cefepime Result Diagram: 03/14/19 0450 03/14/19 0450 Results 24hrs Laboratory Tests Test 03/14/19 04:50 White Blood Count 6.3 Red Blood Count 4.09 L Hemoglobin 11.3 L Hematocrit 34.6 L Mean Corpuscular Volume 84.6 Mean Corpuscular Hemoglobin 27.6 L Mean Corpuscular Hemoglobin Concent 32.7 Red Cell Distribution Width 13.6 Platelet Count 271 # Mean Platelet Volume 9.9 Immature Granulocytes % 0.500 H Neutrophils % Segmented Neutrophils % (Manual) 39 Band Neutrophils % (Manual) 4 Lymphocytes % Lymphocytes % (Manual) 43 Reactive Lymphocytes % (Manual) 2 H Monocytes % Monocytes % (Manual) 2 Eosinophils % Eosinophils % (Manual) 6 Basophils % Basophils % (Manual) 2 Myelocytes % (Manual) 1 H Nucleated Red Blood Cells % 0.0 Immature Granulocytes # 0.030 Neutrophils # Neutrophils # (Manual) 2.5 Band Neutrophils # 0.2 Lymphocytes (Manual) 2.7 Lymphocytes # Reactive Lymphocytes # 0.1 H Monocytes # Monocytes # (Manual) 0.1 L Eosinophils # Basophils # Basophils # (Manual) 0.1 H Myelocytes # 0.0 Nucleated Red Blood Cells # Platelet Estimate NORMAL Giant Platelets 3 H Polychromasia 3+ Poikilocytosis 1+ Anisocytosis 2+ Microcytosis 2+ Sodium Level 143 Potassium Level 4.4 Chloride Level 107 Carbon Dioxide Level 27 Anion Gap 9 Blood Urea Nitrogen 13 Creatinine 0.75 Est Glomerular Filtrat Rate mL/min > 60 Glucose Level 95 Calcium Level 9.3 Magnesium Level 2.0 Total Bilirubin 0.3 Direct Bilirubin 0.00 Indirect Bilirubin 0.3 Aspartate Amino Transf (AST/SGOT) 89 H Alanine Aminotransferase (ALT/SGPT) 188 H Alkaline Phosphatase 142 H Total Protein 7.8 Albumin 3.9 Globulin 3.90 H Albumin/Globulin Ratio 1.00 Subjective 24 Hr Interval Summary Free Text/Dictation Patient is doing well and states shes feeling significantly better. Still with cough but now dry. No acute overnight events. Exam/Review of Systems Exam Vitals Vital Signs Date Temp Pulse Resp B/P (MAP) Pulse Ox O2 O2 Flow FiO2 Time Delivery Rate 03/14/19 88 18 99 21 09:17 03/14/19 98.0 122/80 Room Air 08:09 (94) 03/13/19 2.0 08:07 Intake and Output 03/13/19 03/13/19 03/14/19 1414:59 22:59 06:59 IntakeIntake Total 480 ml 300 ml 50 ml BalanceBalance 480 ml 300 ml 50 ml Exam General: Patient is laying in bed and answers questions appropriately. no acute distress Neck: Supple, nontender, midline Respiratory: Right upper lobes diminished, no wheezing or rhonchi Cardiovascular: regular rate and rhythm, no obvious murmurs Gastrointestinal: soft, nontender to palpation, nondistended, bowel sounds heard. Ext: moving all extremities. no edema Skin: No new skin lesions Results Results 24hrs Laboratory Tests Test 03/14/19 04:50 White Blood Count 6.3 Red Blood Count 4.09 L Hemoglobin 11.3 L Hematocrit 34.6 L Mean Corpuscular Volume 84.6 Mean Corpuscular Hemoglobin 27.6 L Mean Corpuscular Hemoglobin Concent 32.7 Red Cell Distribution Width 13.6 Platelet Count 271 # Mean Platelet Volume 9.9 Immature Granulocytes % 0.500 H Neutrophils % Segmented Neutrophils % (Manual) 39 Band Neutrophils % (Manual) 4 Lymphocytes % Lymphocytes % (Manual) 43 Reactive Lymphocytes % (Manual) 2 H Monocytes % Monocytes % (Manual) 2 Eosinophils % Eosinophils % (Manual) 6 Basophils % Basophils % (Manual) 2 Myelocytes % (Manual) 1 H Nucleated Red Blood Cells % 0.0 Immature Granulocytes # 0.030 Neutrophils # Neutrophils # (Manual) 2.5 Band Neutrophils # 0.2 Lymphocytes (Manual) 2.7 Lymphocytes # Reactive Lymphocytes # 0.1 H Monocytes # Monocytes # (Manual) 0.1 L Eosinophils # Basophils # Basophils # (Manual) 0.1 H Myelocytes # 0.0 Nucleated Red Blood Cells # Platelet Estimate NORMAL Giant Platelets 3 H Polychromasia 3+ Poikilocytosis 1+ Anisocytosis 2+ Microcytosis 2+ Sodium Level 143 Potassium Level 4.4 Chloride Level 107 Carbon Dioxide Level 27 Anion Gap 9 Blood Urea Nitrogen 13 Creatinine 0.75 Est Glomerular Filtrat Rate mL/min > 60 Glucose Level 95 Calcium Level 9.3 Magnesium Level 2.0 Total Bilirubin 0.3 Direct Bilirubin 0.00 Indirect Bilirubin 0.3 Aspartate Amino Transf (AST/SGOT) 89 H Alanine Aminotransferase (ALT/SGPT) 188 H Alkaline Phosphatase 142 H Total Protein 7.8 Albumin 3.9 Globulin 3.90 H Albumin/Globulin Ratio 1.00 Medications Medication Current Medications IV Flush (NS 3 ml) 3 ml PER PROTOCOL IV ; Start 03/10/19 at 04:00 Ondansetron HCl (Zofran Inj) 4 mg Q6H PRN IV NAUSEA/VOMITING; Start 03/10/19 at 04:00 Acetaminophen (Tylenol Tab) 650 mg Q6H PRN PO .PAIN 1-3 OR TEMP Last administered on 03/14/19at 00:38; Admin Dose 650 MG; Start 03/10/19 at 04:00 Acetaminophen/ Hydrocodone Bitart ([place] (5/325)) 1 tab Q4H PRN PO MODERATE PAIN LEVEL 4-6 Last administered on 03/11/19at 10:07; Admin Dose 1 TAB; Start 03/10/19 at 08:30 Albuterol (Proventil 0.083% (Neb)) 2.5 mg Q2H RESP THERAPY PRN HHN SHORTNESS OF BREATH Last administered on 03/11/19at 18:37; Admin Dose 2.5 MG; Start 03/11/19 at 12:00 Albuterol (Proventil 0.083% (Neb)) 2.5 mg Q6HWA RESP THERAPY HHN Last administered on 03/14/19at 09:15; Admin Dose 2.5 MG; Start 03/11/19 at 14:00 Polyethylene Glycol (Miralax) 17 gm DAILY PO Last administered on 03/11/19at 13:22; Admin Dose 17 GM; Start 03/11/19 at 12:00 Docusate Sodium (Colace) 100 mg BID PRN PO CONSTIPATION; Start 03/11/19 at 12:00 Hydromorphone HCl (Dilaudid) 0.5 mg Q4H PRN IV SEVERE PAIN LEVEL 7-10 Last administered on 03/11/19at 20:15; Admin Dose 0.5 MG; Start 03/11/19 at 12:30 Guaifenesin (Mucinex) 600 mg BID PO Last administered on 03/14/19at 09:32; Admin Dose 600 MG; Start 03/13/19 at 11:00 Levofloxacin (Levaquin) 750 mg DAILY@06 PO Last administered on 03/14/19at 05:43; Admin Dose 750 MG; Start 03/14/19 at 06:00 Cefepime HCl 50 ml @ 100 mls/hr Q12H IVPB Last administered on 03/14/19at 03:51; Admin Dose 100 MLS/HR; Start 03/14/19 at 04:00 NAEEM HORNE MD March 14, 2019 13:47
--- NOTE | 2019-03-14 13:49 | CONS ---
Assessment/Plan Assessment/Plan Hospital Course (Demo Recall) Patient is doing much better her pleuritic chest pain resolved she is coughing less no fevers WBC 6.3 BUN [address] chest revealed right upper lobe pulmonary consolidation and patchy groundglass opacities. Additional smaller consolidation and opacities in the right middle lobe and right lower lobe. Findings concerning for multifocal pneumonia. 1.9 cm left thyroid nodule. 2.0 cm enhancing lesion of the medial left lobe of the liver. Antimicrobials: Levaquin, cefepime Physical examination well-developed middle-aged woman who is alert in no distress neck is supple chest rise symmetrical breath sounds clear. Heart: S1- S2 abdomen soft bowel sounds present extremities without cyanosis Assessment: 1. Multifocal right-sided pneumonia 2. Pseudomonas UTI 3. Coag negative staph bacteremia with repeat blood cultures negative Plan: Patient is improving, she sounds much better, anticipate discharge on oral Levaquin and Augmentin for 7-10 more days when she is medically cleared Consultation Date/Type/Reason Admit Date/Time March 10, 2019 at 02:45 Initial Consult Date Type of Consult id Date/Time of Note DATE: 03/14/19 TIME: 13:48 Exam/Review of Systems Exam Vitals Vital Signs Date Temp Pulse Resp B/P (MAP) Pulse Ox O2 O2 Flow FiO2 Time Delivery Rate 03/14/19 88 18 99 21 09:17 03/14/19 98.0 122/80 Room Air 08:09 (94) 03/13/19 2.0 08:07 Intake and Output 03/13/19 03/13/19 03/14/19 1515:00 23:00 07:00 IntakeIntake Total 480 ml 300 ml 50 ml BalanceBalance 480 ml 300 ml 50 ml Results Result Diagram: 03/14/19 0450 03/14/19 0450 Results 24hrs Laboratory Tests Test 03/14/19 04:50 White Blood Count 6.3 Red Blood Count 4.09 L Hemoglobin 11.3 L Hematocrit 34.6 L Mean Corpuscular Volume 84.6 Mean Corpuscular Hemoglobin 27.6 L Mean Corpuscular Hemoglobin Concent 32.7 Red Cell Distribution Width 13.6 Platelet Count 271 # Mean Platelet Volume 9.9 Immature Granulocytes % 0.500 H Neutrophils % Segmented Neutrophils % (Manual) 39 Band Neutrophils % (Manual) 4 Lymphocytes % Lymphocytes % (Manual) 43 Reactive Lymphocytes % (Manual) 2 H Monocytes % Monocytes % (Manual) 2 Eosinophils % Eosinophils % (Manual) 6 Basophils % Basophils % (Manual) 2 Myelocytes % (Manual) 1 H Nucleated Red Blood Cells % 0.0 Immature Granulocytes # 0.030 Neutrophils # Neutrophils # (Manual) 2.5 Band Neutrophils # 0.2 Lymphocytes (Manual) 2.7 Lymphocytes # Reactive Lymphocytes # 0.1 H Monocytes # Monocytes # (Manual) 0.1 L Eosinophils # Basophils # Basophils # (Manual) 0.1 H Myelocytes # 0.0 Nucleated Red Blood Cells # Platelet Estimate NORMAL Giant Platelets 3 H Polychromasia 3+ Poikilocytosis 1+ Anisocytosis 2+ Microcytosis 2+ Sodium Level 143 Potassium Level 4.4 Chloride Level 107 Carbon Dioxide Level 27 Anion Gap 9 Blood Urea Nitrogen 13 Creatinine 0.75 Est Glomerular Filtrat Rate mL/min > 60 Glucose Level 95 Calcium Level 9.3 Magnesium Level 2.0 Total Bilirubin 0.3 Direct Bilirubin 0.00 Indirect Bilirubin 0.3 Aspartate Amino Transf (AST/SGOT) 89 H Alanine Aminotransferase (ALT/SGPT) 188 H Alkaline Phosphatase 142 H Total Protein 7.8 Albumin 3.9 Globulin 3.90 H Albumin/Globulin Ratio 1.00 Medications Medication Current Medications IV Flush (NS 3 ml) 3 ml PER PROTOCOL IV ; Start 03/10/19 at 04:00 Ondansetron HCl (Zofran Inj) 4 mg Q6H PRN IV NAUSEA/VOMITING; Start 03/10/19 at 04:00 Acetaminophen (Tylenol Tab) 650 mg Q6H PRN PO .PAIN 1-3 OR TEMP Last administered on 03/14/19at 00:38; Admin Dose 650 MG; Start 03/10/19 at 04:00 Acetaminophen/ Hydrocodone Bitart ([place] (5/325)) 1 tab Q4H PRN PO MODERATE PAIN LEVEL 4-6 Last administered on 03/11/19at 10:07; Admin Dose 1 TAB; Start 03/10/19 at 08:30 Albuterol (Proventil 0.083% (Neb)) 2.5 mg Q2H RESP THERAPY PRN HHN SHORTNESS OF BREATH Last administered on 03/11/19at 18:37; Admin Dose 2.5 MG; Start 03/11/19 at 12:00 Albuterol (Proventil 0.083% (Neb)) 2.5 mg Q6HWA RESP THERAPY HHN Last administered on 03/14/19 09:15; Admin Dose 2.5 MG; Start 03/11/19 at 14:00 Polyethylene Glycol (Miralax) 17 gm DAILY PO Last administered on 03/11/19 13:22; Admin Dose 17 GM; Start 03/11/19 at 12:00 Docusate Sodium (Colace) 100 mg BID PRN PO CONSTIPATION; Start 03/11/19 at 12:00 Hydromorphone HCl (Dilaudid) 0.5 mg Q4H PRN IV SEVERE PAIN LEVEL 7-10 Last administered on 03/11/19 20:15; Admin Dose 0.5 MG; Start 03/11/19 at 12:30 Guaifenesin (Mucinex) 600 mg BID PO Last administered on 03/14/19 09:32; Admin Dose 600 MG; Start 03/13/19 at 11:00 Levofloxacin (Levaquin) 750 mg DAILY@06 PO Last administered on 03/14/19at 0 5:43; Admin Dose 750 MG; Start 03/14/19 at 06:00 Cefepime HCl 50 ml @ 100 mls/hr Q12H IVPB Last administered on 03/14/19at 03:51; Admin Dose 100 MLS/HR; Start 03/14/19 at 04:00 CELSO GRIJALVA NP March 14, 2019 13:49
[2019-03-14] MEDS ORDERED: ALBU8.5H8 INH (13:50)
[2019-03-14] MEDS ORDERED: LEVO750T25 PO (13:50)
[2019-03-14] MEDS ORDERED: AMOX1TAB10 PO (13:50)
[2019-03-14] MEDS ORDERED: FER325 PO (13:51)
--- NOTE | 2019-03-14 13:55 | PDOCDIS ---
Discharge Instructions DIAGNOSIS Discharge Diagnosis 1. Sepsis secondary to PNA, UTI, and bacteremia- improving 2. Right multifocal pneumonia 3. UTI- resolving 4. Bacteremia- treated 5. h/o nephrolithiasis 6. Anemia CONDITION [id number] Patient Condition: [id number] Stable HOME CARE INSTRUCTIONS: [id number] Diet Instructions: [id number] Regular ACTIVITY: [id number] Activity Restrictions: [id number] Slowly Increase Activity Rest between Activity [id number] Bathing Restrictions: [id number] Shower FOLLOW UP/APPOINTMENTS Follow-up Plan 1. Follow up with your primary care physician in 1- 2 weeks 2. Take Levaquin daily and Augmentin twice a day with next dose tomorrow, 03/15. 3. Use inhaler as needed for any shortness of breath 4. If experiencing any concerning symptoms, please return to your closest emergency department NAEEM HORNE MD March 14, 2019 13:55
--- NOTE | 2019-03-14 15:57 | DS ---
Date/Time of Note Date/Time of Note DATE: 03/14/19 TIME: 15:54 Discharge Summary Admission/Discharge Info Admit Date/Time March 10, 2019 at 02:45 Discharge Date/Time 03/14/19 Discharge Diagnosis 1. Sepsis secondary to PNA, UTI, and bacteremia- improving 2. Right multifocal pneumonia 3. UTI- resolving 4. Bacteremia- treated 5. h/o nephrolithiasis 6. Anemia Patient Condition: Stable Consults Infectious disease- Dr Aidan Saucedo of Present Illness 29-year-old female with left ureterolithiasis status post stent presented with left flank pain and found to be septic secondary to UTI with probable left-sided pyelonephritis Hospital Course Patient was admitted for sepsis secondary to possible UTI and IV antibiotics were started. She had imaging studies performed that were negative for pyelonephritis as well as no presence of nephrolithiasis. Patient did has a urine culture growing pseudomonas and found with positives blood cultures. ID was consulted for antibiotic recommendations. Patient was still experiencing low grade fevers and CXR revealed right sided pneumonia. CT scan was performed as well which showed multifocal pneumonia in right lobe. Antibiotic adjustments were made and patient was feeling significantly better. She remained afebrile and WBC was normal. Patient was discharged home with prescriptions for PO antibiotics to complete a 14 day total course. Home Meds Active Scripts Ferrous Sulfate* (Ferrous Sulfate*) 325 Mg Tabec, 325 MG PO DAILY for 30 Days, #30 TAB 1 Refill Prov:NAEEM HORNE MD 03/14/19 Albuterol Sulfate* (Proair HFA*) 8.5 Gm Hfa.aer.ad, 2 PUFF INH Q4H PRN for WHEEZING AND SOB for 30 Days, #1 INHALER 1 Refill Prov:NAEEM HORNE MD 03/14/19 Amoxicillin/Potassium Clav (Amox-Clav 875-125 mg Tablet) 875-125 mg Tab, 1 TAB PO BID for 13 Days, #26 TAB Prov:NAEEM HORNE MD 03/14/19 Levofloxacin* (Levaquin*) 750 Mg Tablet, 750 MG PO DAILY@06 for 13 Days, #13 TAB Prov:NAEEM HORNE MD 03/14/19 Follow-up Plan 1. Follow up with your primary care physician in 1- 2 weeks 2. Take Levaquin daily and Augmentin twice a day with next dose tomorrow, 03/15. 3. Use inhaler as needed for any shortness of breath 4. If experiencing any concerning symptoms, please return to your closest emergency department Primary Care Provider Not On Staff Doctor Time spent on discharge: > 30 minutes Pending Labs Laboratory Tests Test 03/14/19 04:50 White Blood Count 6.3 10^3/ul (4.8-10.8) Red Blood Count 4.09 10^6/ul (4.20-5.40) Hemoglobin 11.3 g/dl (12.0-16.0) Hematocrit 34.6 % (37.0-47.0) Mean Corpuscular Volume 84.6 fl (82.0-101.0) Mean Corpuscular Hemoglobin 27.6 pg (29.0-33.0) Mean Corpuscular Hemoglobin Concent 32.7 g/dl (32.0-37.0) Red Cell Distribution Width 13.6 % (11.5-14.5) Platelet Count 271 10^3/UL (140-415) Mean Platelet Volume 9.9 fl (7.4-10.4) Immature Granulocytes % 0.500 % (0.001-0.429) Neutrophils % % (39.0-77.0) Segmented Neutrophils % (Manual) 39 % (39-77) Band Neutrophils % (Manual) 4 % (0-4) Lymphocytes % % (15.0-51.0) Lymphocytes % (Manual) 43 % (15-51) Reactive Lymphocytes % (Manual) 2 % (0-0) Monocytes % % (0.0-11.0) Monocytes % (Manual) 2 % (0-11) Eosinophils % % (0.0-7.0) Eosinophils % (Manual) 6 % (0-7) Basophils % % (0.0-2.0) Basophils % (Manual) 2 % (0-2) Myelocytes % (Manual) 1 % (0-0) Nucleated Red Blood Cells % 0.0 /100WBC (0.0-0.0) Immature Granulocytes # 0.030 10^3/ul (0.0-0.031) Neutrophils # 10^3/ul (1.6-7.5) Neutrophils # (Manual) 2.5 10^3/ul (1.6-7.5) Band Neutrophils # 0.2 10^3/ul (0.0-0.6) Lymphocytes (Manual) 2.7 10^3/ul (0.8-2.9) Lymphocytes # 10^3/ul (0.8-2.9) Reactive Lymphocytes # 0.1 10^3/ul (0.0-0.0) Monocytes # 10^3/ul (0.3-0.9) Monocytes # (Manual) 0.1 10^3/ul (0.3-0.9) Eosinophils # 10^3/ul (0.0-0.5) Basophils # 10^3/ul (0.0-0.1) Basophils # (Manual) 0.1 10^3/ul (0.0-0.0) Myelocytes # 0.0 10^3/ul (0.0-0.0) Nucleated Red Blood Cells # 10^3/ul (0.0-0.0) Platelet Estimate NORMAL Giant Platelets 3 % (0-0) Polychromasia 3+ (0-0) Poikilocytosis 1+ (0-0) Anisocytosis 2+ (0-0) Microcytosis 2+ (0-0) Sodium Level 143 mmol/L (135-144) Potassium Level 4.4 mmol/L (3.5-5.1) Chloride Level 107 mmol/L (97-110) Carbon Dioxide Level 27 mmol/L (21-31) Anion Gap 9 (5-13) Blood Urea Nitrogen 13 mg/dl (7-20) Creatinine 0.75 mg/dl (0.44-1.00) Est Glomerular Filtrat Rate mL/min > 60 mL/min (>60) Glucose Level 95 mg/dl (70-220) Calcium Level 9.3 mg/dl (8.4-10.2) Magnesium Level 2.0 mg/dl (1.7-2.5) Total Bilirubin 0.3 mg/dl (0.2-1.3) Direct Bilirubin 0.00 mg/dl (0.00-0.20) Indirect Bilirubin 0.3 mg/dl (0-1.1) Aspartate Amino Transf (AST/SGOT) 89 IU/L (15-46) Alanine Aminotransferase (ALT/SGPT) 188 IU/L (13-69) Alkaline Phosphatase 142 IU/L (42-121) Total Protein 7.8 g/dl (6.1-8.1) Albumin 3.9 g/dl (3.3-4.9) Globulin 3.90 g/dl (1.3-3.2) Albumin/Globulin Ratio 1.00 NAEEM HORNE MD March 14, 2019 15:57
== END 2019-03-14 18:50 | disposition home or self-care (01) | DRG 871 ==
LOC: FTE 23:50 → MS1 03-10 02:45
PROVIDERS: ADMIT Internal Medicine; ATTEND Internal Medicine
DX: A41.9 Sepsis, unspecified organism (principal); J18.9 Pneumonia, unspecified organism; N39.0 Urinary tract infection, site not specified; N10 Acute pyelonephritis; Z87.442 Personal history of urinary calculi; D64.9 Anemia, unspecified; B96.5 Pseudomonas (aeruginosa) (mallei) (pseudomallei) as the cause of diseases classified elsewhere
CPT/HCPCS: 36415; 71045; 71260; 74018; 74176; 76700; 80053; 80202; 81001; 81025; 82565; 83540; 83605; 83735; 84100; 84484; 84520; 84703; 85025; 85610; 85730; 86704; 86709; 86803; 87086; 87340; 93005; 93306; 94640; 94664; 94669; 96374; 96375; J0456; J0692; J0696; J1170; J1885; J2270; J2405; J3370; J7030; J7040; Q9967